=== PATIENT | female | born 1955 | race Hispanic/Latino ===

== ENCOUNTER 2022-07-21 17:52 | Emergency (ER) | payer MEDICARE ==
[2022-07-21] MEDS ORDERED: SODIUM CHLORIDE 0.9% 1000 ML 1,000 ML IV ONE (20:51)
[2022-07-21] MEDS ORDERED: LIDOCAINE 2%/EPINEPHRINE 1:100,000 VIAL (20 ML) INFILTRATI ONE (21:45)
--- NOTE | 2022-07-21 21:48 | Cat Scan Report ---
CT CERVICAL SPINE WITHOUT CONTRAST INDICATION / CLINICAL INFORMATION: Fall. TECHNIQUE: Axial CT images were obtained through the cervical spine. Sagittal and coronal reformatted images were produced. All CT scans at this location are performed using CT dose reduction for ALARA by means of automated exposure control. COMPARISON: None available. FINDINGS: VERTEBRAE: Postsurgical changes from anterior fixation of C4-T1. The midportion of the plate has back ed off and there appears to be loosening of the superior most fixation screws. Osseous irregularity a long the anterior margins of the C5-C7 vertebral bodies with prominent anterior soft tissue. 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 FACET JOINTS: Advanced upper cervical spine facet arthropathy. CRANIOCERVICAL JUNCTION:Degenerative changes without acute abnormality. SPINAL CANAL: Mild multilevel spinal canal narrowing. PARASPINAL SOFT TISSUES: Prominent prevertebral soft tissue adjacent to the anterior fixation hardwar e. ADDITIONAL FINDINGS: None. LUNG APICES: No significant abnormality of visualized lungs. IMPRESSION: 1. Postsurgical changes from anterior fixation of C4-T1 with evidence of hardware loosening. Addition ally there is prominent soft tissue deep to the hardware with irregular erosions along the anterior m argins of the C5-C7 vertebral bodies. Findings are concerning for infection. Consider further evaluat ion with cervical spine MRI with and without contrast as indicated. 2. No convincing evidence of acute fracture. Signer Name: Watler Sanchez MD Signed: 07/21/2022 9:44 PM Workstation Name: [id number]
--- NOTE | 2022-07-21 21:50 | Cat Scan Report ---
CT HEAD WITHOUT CONTRAST INDICATION / CLINICAL INFORMATION: Fall. TECHNIQUE: All CT scans at this location are performed using CT dose reduction for ALARA by means of automated exposure control. COMPARISON: None available. FINDINGS: HEMORRHAGE: None. EXTRA-AXIAL SPACES: Normal in size and morphology for the patient's age. VENTRICULAR SYSTEM: Normal in size and morphology for the patient's age. CEREBRAL PARENCHYMA: No significant abnormality. No acute territorial infarct. MIDLINE SHIFT / HERNIATION: None. CEREBELLUM / BRAINSTEM: No significant abnormality. ORBITS: Normal as visualized. SOFT TISSUES: No significant abnormality. SKULL: No significant abnormality. PARANASAL SINUSES / MASTOID AIR CELLS: Right mastoidectomy. ADDITIONAL FINDINGS: None. IMPRESSION: 1. No acute intracranial abnormality. Signer Name: Walter Sanchez MD Signed: 07/21/2022 9:46 PM Workstation Name: [id number]
[2022-07-21 22:02] LABS: Hemoglobin 10.4 gm/dl (10.1-14.3); Mean Corpuscular HGB Conc 32 % (30-34); Mean Corpuscular Volume 92 fl (79-97); Platelet Count 274 K/mm3 (140-440); Red Blood Count 3.47 M/mm3 (3.65-5.03); Red Cell Distribution Width 15.6 % (13.2-15.2)
[2022-07-21 22:07] LABS: INR 0.96 (0.87-1.13)
--- NOTE | 2022-07-21 22:07 | Emergency Department Report ---
ED Head Trauma HPI - General Chief complaint: Fall Stated complaint: ETOH Time Seen by Provider: 07/21/22 21:38 Source: patient, EMS Mode of arrival: Stretcher Limitations: No Limitations - History of Present Illness Initial comments: Patient is a 66-year-old female presenting to ED for head injury. States she stood up and bumped her head on an open cabinet door. Her daughter reports that patient has history of alcoholism with multiple falls at home. Currently trying to get her into rehab. - Related Data Allergies/Adverse reactions: Allergies Allergy/AdvReac Type Severity Reaction Status Date / Time acetaminophen [From Tylenol] Allergy Rash Verified 07/02/16 21:01 amoxicillin trihydrate Allergy Rash Verified 07/02/16 21:00 [From Augmentin] potassium clavulanate Allergy Rash Verified 07/02/16 21:00 [From Augmentin] ED Review of Systems ROS: Stated complaint: ETOH Other details as noted in HPI Constitutional: denies: chills, fever Respiratory: denies: cough, shortness of breath, wheezing Cardiovascular: denies: chest pain, palpitations Gastrointestinal: denies: abdominal pain, nausea, diarrhea Genitourinary: denies: urgency, dysuria, discharge Musculoskeletal: denies: back pain, joint swelling, arthralgia Skin: denies: rash, lesions Neurological: denies: headache, weakness, paresthesias Psychiatric: denies: anxiety, depression ED Past Medical Hx - Past Medical History Hx Hypertension: Yes Hx Diabetes: Yes (BORDERLINE) - Surgical History Additional Surgical History: multiple - Social History Smoking Status: Never Smoker Substance Use Type: Alcohol ED Physical Exam - General Limitations: No Limitations General appearance: alert, appears intoxicated - Head Head exam: Present: atraumatic, normocephalic - Neck Neck exam: Present: normal inspection - Respiratory Respiratory exam: Present: normal lung sounds bilaterally. Absent: respiratory distress - Cardiovascular Cardiovascular Exam: Present: regular rate, normal rhythm, normal heart sounds - GI/Abdominal GI/Abdominal exam: Present: soft. Absent: distended, tenderness - Neurological Exam Neurological exam: Present: alert, oriented X3 - Psychiatric Psychiatric exam: Present: normal affect, normal mood - Skin Skin exam: Present: warm, dry, intact, normal color ED Course Vital Signs 07/21/22 18:08 Temperature 98.2 F Pulse Rate 90 Respiratory 18 Rate Blood Pressure 127/80 [Left] O2 Sat by Pulse 99 Oximetry - Lab Data Result diagrams: 07/21/22 21:25 Lab Results 07/21/22 07/21/22 Range/Units 21:25 21:25 WBC 8.3 (4.5-11.0) K/mm3 RBC 3.47 L (3.65-5.03) M/mm3 Hgb 10.4 (10.1-14.3) gm/dl Hct 32.0 (30.3-42.9) % MCV 92 (79-97) fl MCH 30 (28-32) pg MCHC 32 (30-34) % RDW 15.6 H (13.2-15.2) % Plt Count 274 (140-440) K/mm3 Lymph % (Auto) Sales Leader [place] % (Auto) Sales Leader Eos % (Auto) Sales Leader Baso % (Auto) Sales Leader Lymph # (Auto) Sales Leader [place] # (Auto) Sales Leader Eos # (Auto) Sales Leader Baso # (Auto) Sales Leader Seg Neutrophils % Sales Leader Seg Neutrophils # Sales Leader PT 13.8 (12.2-14.9) Sec. INR 0.96 (0.87-1.13) - Medical Decision Making CT head unremarkable. Laceration repaired with bret. CT C-spine shows no acute fractures however findings concerning for possible infection related to remote surgery. MRI recommended for further evaluation as indicated. Patient currently denies any neck pain or fever. WBC count is normal. I discussed these findings with patient and family. Patient states she has upcoming MRI scheduled. Despite this I encouraged her to follow-up with her PCP within 1 we ek regarding this as well as to have her bret removed. Critical care attestation.: If time is entered above; I have spent that time in minutes in the direct care of this critically ill patient, excluding procedure time. ED Disposition Clinical Impression: Occipital scalp laceration, Abnormal CT scan, cervical spine Disposition: 01 HOME / SELF CARE / HOMELESS Is pt being admited?: No Condition: Stable Instructions: Sutures, Bret, or Adhesive Wound Closure, [id number] Additional Instructions: Please follow-up with your primary doctor within 1 week to have your bret removed and also to discuss your abnormal CT findings/recommendation for MRI. Please return immediately if you develop fever, altered mental status or neck pain. Referrals: SHERON CANO MD [Primary Care Provider] - 3-5 Days
[2022-07-21 22:46] LABS: BUN/Creatinine Ratio 19; Blood Urea Nitrogen 23 mg/dL (7-17); Calcium 9.6 mg/dL (8.4-10.2)
[2022-07-21 22:47] LABS: Alanine Aminotransferase 43 units/L (7-56); Albumin 4.6 g/dL (3.9-5)
[2022-07-22 01:29] VITALS: BP 130/78
== END 2022-07-21 22:00 | disposition home or self-care (01) ==
LOC: ED 17:52
DX: S01.01XA Laceration without foreign body of scalp, initial encounter (principal); R93.7 Abnormal findings on diagnostic imaging of other parts of musculoskeletal system; I10 Essential (primary) hypertension; F10.20 Alcohol dependence, uncomplicated; X58.XXXA Exposure to other specified factors, initial encounter; Y93.89 Activity, other specified; Y92.89 Other specified places as the place of occurrence of the external cause; Y99.8 Other external cause status
CPT/HCPCS: 12001; 36415; 70450; 72125; 80053; 85025; 85610; 99284; J3490; 80320; G0480